=== PATIENT | male | born 1965 | race Two or more races ===

== ENCOUNTER 2019-10-04 17:26 | Emergency (ER) | payer MEDICAID, OTHER ==
[~2019-10-04] VITALS: Ht 180.3 cm; Wt 86.2 kg
[2019-10-04 17:36] VITALS: BP 155/110
[2019-10-04] MEDS ORDERED: LIDOCAINE 1% (LOCAL ANESTH.) PF 5ml SDV ID ONE (18:30)
== END 2019-10-04 20:27 | disposition home or self-care (01) ==
LOC: ER 17:26 → EDBD 17:26 → ER 20:27
DX: S61.412A Laceration without foreign body of left hand, initial encounter (principal); W45.8XXA Other foreign body or object entering through skin, initial encounter; Y93.89 Activity, other specified; Y92.89 Other specified places as the place of occurrence of the external cause; Y99.8 Other external cause status
CPT/HCPCS: 12002